=== PATIENT | male | born 1985 | race Caucasian/White ===

== ENCOUNTER 2020-12-16 09:13 | Emergency (ER) | payer OTHER ==
[2020-12-16 11:32] VITALS: BP 153/82; PULSE 90; RESP 18; TEMP 98
--- NOTE | 2020-12-16 11:33 | ED ---
General Adult HPI - General Source: patient, RN notes reviewed Mode of arrival: ambulatory Limitations: no limitations <Sandy Zamora - Last Filed: 12/16/20 11:31> <Mckinley Nichole - Last Filed: 12/16/20 21:43> - General Chief complaint: Headache Stated complaint: Swollen lymph node, cough, migraine Time Seen by Provider: 12/16/20 11:32 - History of Present Illness Initial comments: Patient is a 35-year-old male presenting to emergency Department with complaints of chills, body aches, some lymph nodes and headaches over the past 2 days. No cough, no chest pain, no shortness of breath. Denies sore throat and ear pain. (Sandy Zamora) Patient is a 35-year-old male with past medical history remarkable for scoliosis who presents with the department with a 2 to three-day history of sore throat, congestion, rhinorrhea who is concerned that he may have Covid. He also is co mplaining of body aches. Denies any fevers. There is a mild headache earlier but no longer has one. Denies any chest pain, shortness of breath, abdominal pain, nausea, vomiting. He is endorsing a mild productive cough. Patient did have 1 sick contact , a friend's son with stomach flu symptoms. He is concerned that he may have Covid or the flu. His no other acute complaints at this time. He denies any ear pain. Denies any facial pain. (Mckinley Nichole) - Related Data Previous Rx's Medication Instructions Recorded Penicillin V Potassium [Pen Vee K] 500 mg PO QID #40 tab 01/21/16 traMADol HCl [Ultram] 50 mg PO Q4H PRN #15 tab 01/21/16 Allergies Allergy/AdvReac Type Severity Reaction Status Date / Time No Known Allergies Allergy Verified 12/16/20 11:31 Review of Systems ROS Other: All systems not noted in ROS Statement are negative. <Sandy Zamora - Last Filed: 12/16/20 11:31> ROS Other: All systems not noted in ROS Statement are negative. <Mckinley Nichole - Last Filed: 12/16/20 21:43> ROS Statement: Those systems with pertinent positive or pertinent negative responses have been documented in the HPI. Review of Systems: CONST: Denies fever EYES: Denies blurry vision ENT: Endorses cough, sore throat C/V: Denies Chest pain RESP: Denies shortness of breath GI: Denies abdominal pain : Denies dysuria SKIN: Denies rash. MSK: Denies joint pain. NEURO: Denies headache (Mckinley Nichole) Past Medical History Past Medical History: No Reported History Additional Past Medical History / Comment(s): scoliosis History of Any Multi-Drug Resistant Organisms: None Reported Past Surgical History: Appendectomy Additional Past Surgical History / Comment(s): eye surg Past Psychological History: No Psychological Hx Reported Past Alcohol Use History: Occasional Past Drug Use History: Marijuana <Sandy Zamora - Last Filed: 12/16/20 11:31> General Exam Limitations: no limitations General appearance: alert, in no apparent distress Head exam: Present: atraumatic Eye exam: Present: normal appearance <Sandy Zamora - Last Filed: 12/16/20 11:31> <Mckinley Nichole - Last Filed: 12/16/20 21:43> - General Exam Comments Initial Comments: General: Appears in no acute distress. HEAD: Normal with no signs of head trauma. EYES: PERRLA, EOMI, conjunctiva normal, no discharge. ENT: Hearing grossly intact. Normal tympanic membranes. Patient has bilateral tonsillar erythema with exudates present. Is some mild lymphadenopathy in the anterior cervical lymph nodes. RESPIRATORY: Clear breath sounds bilaterally. No wheezes, rales, or rhonchi. C/V: Regular rate and rhythm. S1 and S2 auscultated, no edema, peripheral pulses 2+ and intact throughout ABD: Abd is soft, nontender, nondistended EXT: Normal range of motion, no obvious deformity SKIN: No rashes or lesions observed on exposed skin. NEURO: Alert and oriented 4. (Mckinley Nichole) Course Vital Signs 12/16/20 11:31 Temperature 98 F Pulse Rate 90 Respiratory 18 Rate Blood Pressure 153/82 O2 Sat by Pulse 98 Oximetry Medical Decision Making <Mckinley Nichole - Last Filed: 12/16/20 21:43> - Medical Decision Making Based on patient's presentation and physical exam, he is likely expressing acute upper respiratory illness. Differential includes Covid, strep throat, pneumonia with his mild cough, sore throat. Covid so was already obtained at triage. I did offer him flu swab, however due to the patient not having any change in management if she was positive, we determined that we will bypass is at this time. Covid was negative. We will obtain strep throat swab throat swab as well as chest x-ray and provide him with ibuprofen for body aches. He was in agreement with this plan. Chest x-ray showed no acute cardio pulmonary process. Strep throat swab was negative. I discussed this with the patient and he states he feels somewhat better. I believe it is safer and discharged home he was in agreement this plan. I instructed the patient to follow up with their PCP in the next 3 days. I explained that the patient should return to the emergency department if they experience any worsening symptoms. Strict return precautions were discussed with the patient. The patient expressed understanding of these instructions. I answered all questions that the patient had. The patient was discharged home in good condition with their prescriptions and follow up information. (Mckinley Nichole) - Lab Data Lab Results 12/16/20 12/16/20 Range/Units 11:19 13:38 Coronavirus (PCR) Not Detected (Not Detectd) Group A Strep Rapid Negative (Negative) Disposition <Sandy Zamora - Last Filed: 12/16/20 11:31> Is patient prescribed a controlled substance at d/c from ED?: No <Mckinley Nichole - Last Filed: 12/16/20 21:43> Clinical Impression: Acute viral syndrome Disposition: HOME SELF-CARE Condition: Good Referrals: Miguel Zuñiga MD [Primary Care Provider] - 1-2 days
[2020-12-16] MEDS ORDERED: IBUPROFEN 400 MG TAB PO STA (13:37)
--- NOTE | 2020-12-16 14:16 | XR ---
EXAMINATION TYPE: XR chest 2V DATE OF EXAM: 12/16/2020 COMPARISON: NONE HISTORY: Sore throat, cough TECHNIQUE: Frontal and lateral views of the chest are obtained. FINDINGS: There is no focal air space opacity, pleural effusion, or pneumothorax seen. The cardiac silhouette size is within normal limits. The osseous structures are intact, there is a spinal curva ture. IMPRESSION: No acute cardiopulmonary process.
== END 2020-12-16 15:04 | disposition home or self-care (01) ==
LOC: EC 09:13
DX: B34.9 Viral infection, unspecified (principal); Z20.822 Contact with and (suspected) exposure to COVID-19
CPT/HCPCS: 71046; 87081; 87430; 87635; 99284